=== PATIENT | male | born 1985 | race Hispanic/Latino ===

== ENCOUNTER → 2025-04-18 | Outpatient (CLI) | payer BC ==
[2025-04-18 16:42] LABS: BASOPHIL % 0.3 % (0.2-1.2); EOSINOPHIL % 0.1 % (0.0-5.0); HEMATOCRIT(ML) 43.2 % (37.0-53.0); HEMOGLOBIN 14.9 g/dL (13.9-16.3); LYMPHOCYTES % 4.8 % (24.0-44.0); MEAN CORP HGB 28.4 pg (26-34); MEAN CORP HGB CONCENTRATION 34.5 g/dL (33-36.5); MEAN CORP VOLUME 82.4 fL (78-100); MONOCYTES # 1.4 10^3/uL (0.3-0.8); MONOCYTES % 9.8 % (5.0-12.0); NEUTROPHIL # 12.5 10^3/uL (1.8-7.7); NEUTROPHILS % 84.5 % (41.0-85.0); PLATELET COUNT 180 10^3/uL (150-400); RED BLOOD CELL 5.24 10^6/uL (4.50-5.90); WHITE BLOOD CELL 14.7 10^3/uL (4.5-11.0)
[2025-04-18 16:43] LABS: +ADD MANUAL DIFF(NO CHRG) NO
[2025-04-18 17:03] LABS: ALBUMIN(ML) 3.9 g/dL (3.4-5.0); ALBUMIN/GLOBULIN RATIO 1.147; ANION GAP 15.3; BUN/CREATININE RATIO 16.96 (10.0-20.0); CALCIUM 8.7 mg/dL (8.4-10.5); CARBON DIOXIDE 20.7 mmol/L (20.0-32); CREATININE SERUM 1.12 mg/dL (0.59-1.40); EST GFR, NON-AA 73.4 (>/=60)
== END | disposition home or self-care (01) ==
LOC: LAB 16:25
PROVIDERS: ATTEND Nurse Practitioner Family
DX: R11.2 Nausea with vomiting, unspecified (principal)
CPT/HCPCS: 36415; 80053; 85025

== ENCOUNTER → 2025-10-31 | Outpatient (CLI) | payer BC | END | disposition home or self-care (01) | LOC: RAD 13:04 | PROVIDERS: ATTEND Nurse Practitioner Family | DX: M79.671 Pain in right foot (principal) | CPT/HCPCS: 73630-RT ==